=== PATIENT | female | born 1940 | race Caucasian/White ===

== ENCOUNTER 2020-11-21 08:27 | Observation (INO) ==
--- NOTE | 2020-11-07 10:29 | Anesthesiology Consultation ---
Date of Service November 07, 2020 Assessment & Plan (1) Encounter for pre-operative examination: Chart Review Chart Review: Acceptable Risk for Surgery (pending preop Covid testing results ) and Patient NOT seen in Pre Admission Testing Per nursing assessment 11/07/20, pt resides in [facility]. Wears mask, uses good hand hygiene and socially distances. Lives in apartment complex. Pt tested Covid positive in 06/2020- symptoms had improved but then patient tested Covid positive 10/07/20 at preop PAT appt for 10/14/20 surgery- pt states she did get fever, cough, sore throat and breathing issues. Still has mild residual occ sore throat sensation. Pt still tested Covid positive 11/21/20 but Covid negative 11/03/20. Pt scheduled for preop Covid testing 11/17/20= will await results. Right TKA (03/15/14): SAB at L3-L4 (x1 attempt) + PNB at [facility] History Surgery Operation Date: 11/21/20 11:15 Proposed Procedures p Left Total Knee Replacement - Praful Carney MD Height/Weight Height: 5 ft Weight: 72.575 kg Allergies Allergy/AdvReac Type Severity Reaction Status Date / Time diphenhydramine AdvReac Mild "Loopy" Verified 11/07/20 09:07 indomethacin AdvReac Mild "Sick" Verified 11/07/20 09:07 metoclopramide AdvReac Mild "Sick" Verified 11/07/20 09:07 naproxen AdvReac Mild "Sick" Verified 11/07/20 09:07 Medications Home Medications Medication Instructions Recorded Confirmed Last Taken acetaminophen 650 mg PO DAILY PRN 10/07/20 11/07/20 Unknown cetirizine [Allergy Relief 10 mg PO QPM 10/07/20 11/07/20 Unknown (cetirizine)] escitalopram oxalate 10 mg PO HS 10/07/20 11/07/20 Unknown lisinopril 5 mg PO HS 10/07/20 11/07/20 Unknown vvdxktragxsr-[id number] acid 1 tab PO QAM 10/07/20 11/07/20 Unknown [Centrum Women] pantoprazole 40 mg PO BID 10/07/20 11/07/20 Unknown potassium chloride 10 meq PO QAM 10/07/20 11/07/20 Unknown pramipexole 0.5 mg PO HS 10/07/20 11/07/20 Unknown simvastatin 20 mg PO HS 10/07/20 11/07/20 Unknown amino acids [Amino Acid] 3 cap PO QAM 11/07/20 11/07/20 Unknown ascorbic acid (vitamin C) [Vitamin 2 g PO QAM 11/07/20 11/07/20 Unknown C] aspirin [Aspir-81] 81 mg PO QAM 11/07/20 11/07/20 Unknown furosemide 20 mg PO QAM 11/07/20 11/07/20 Unknown Past Medical History Medical History Depression GERD (gastroesophageal reflux disease) controlled History of COVID-19 Diagnosed 06/22/20 at [facility]--sore throat, fever, cough, raspy breathing > resolved DX'D AGAIN [facility] INITIALLY ON 10/07/20 (TEST STILL POSITIVE 10/22/20)-HAD SIMILAR SYMPTOMS TO PREVIOUS -ONLY HAS OCC SORE THROAT SENSATION AT THIS TIME History of thrombophlebitis Hx of multiple superficial blood clots (LEs)- most recent , on ASA daily and wears compression stockings History of uterine cancer ~2005, s/p hysterectomy Hyperlipidemia Hypertension Migraine HX Osteoarthritis Past Family History Family History Father Family history of diabetes mellitus Daughter Family history of diabetes mellitus Brother Family history of diabetes mellitus Other No family history of adverse response to anesthesia Past Surgical History Surgical History History of bilateral cataract extraction History of bilateral tubal ligation History of cardiac cath 2012- "normal coronaries" History of colonoscopy History of esophagogastroduodenoscopy (EGD) History of hysteroscopy (showed uterine cancer) History of repair of hiatal hernia History of tooth extraction full upper denture/partial lower History of total hysterectomy with bilateral salpingo-oophorectomy (BSO) History of total right knee replacement (TKR) Right TKA (03/15/14): SAB at L3-L4 (x1 attempt) + PNB at [facility] History of varicose vein ligation and stripping Social History Smoking Status: Never smoker Do You Dip or Chew Tobacco: No Hx Alcohol Use: No Alcohol type: other alcohol intake frequency: other Hx Substance Use: No substance use type: does not use Lab Results Anesthesia Preop Results Results Anesthesia Widget: WBC 6.01 K/uL (4.8-10.8) 10/07/20 Hgb 12.6 g/dL (12.0-16.0) 10/07/20 Hct 38.6 % (37-47) 10/07/20 Plt 329 K/uL (130-400) 10/07/20 Na 140 mmol/L (136-145) 10/07/20 K 4.7 mmol/L (3.5-5.1) 10/07/20 Cl 108 mmol/L (98-107) H 10/07/20 CO2 30 mmol/L (21-32) 10/07/20 BUN 19 mg/dl (7-18) H 10/07/20 Creat 0.87 mg/dl (0.6-1.2) 10/07/20 Glucose Level 90 mg/dl (70-99) 10/07/20 PT 9.8 Seconds (9.0-12.0) 10/07/20 PTT 23.9 Seconds (21.0-31.0) 10/07/20 INR 1.0 (0.9-1.1) 10/07/20 Blood Type A Positive 10/07/20 Antibody Screen NEGATIVE 10/07/20 Testing Electrocardiogram Date: 10/07/20 Findings: + NSR @ (60) Chest X-Ray Date: 06/23/20 1 VIEW CXR No acute cardiopulmonary abnormality.
--- NOTE | 2020-11-15 11:26 | History and Physical Report ---
DATE OF ADMISSION: 11/21/2020 CHIEF COMPLAINT: Left knee pain. HISTORY OF PRESENT ILLNESS: The patient is an 80-year-old female well known to me from a right knee replacement done 7 years ago. She has a several year history of increasing left knee pain and discomfort that has gradually gotten worse over time. It is really starting to limit her activities and the ability to maintain an independent, active lifestyle. She lives by herself and having more difficulty doing this. Her walking tolerance is only a couple blocks. She has pain going up and down steps. She has lost about 100 pounds since her last surgery, but still limited by her knee pain. She now would like to proceed with left knee replacement. PAST MEDICAL HISTORY: Significant for, 1. Uterine cancer. 2. Anxiety/depression. 3. Obesity with a BMI of 31. 4. Hiatal hernia. PAST SURGICAL HISTORY: Includes, 1. Right knee replacement done on 03/05/2014. 2. Hernia surgery. ALLERGIES: None. CURRENT MEDICATIONS: 1. Tylenol. 2. Alendronate. 3. Os-Chris. 4. Cetirizine. 5. Vitamin D3. 6. Iron gluconate. 7. Furosemide. 8. Lisinopril. 9. Multivitamin. 10. Omeprazole. 11. Paroxetine. 12. Potassium chloride. 13. Pramipexole. 14. Probiotics. 15. Zocor. 16. Vitamin B12. 17. Coumadin 3 mg a day. SOCIAL HISTORY: An 80-year-old female who lives by herself. She is from [place]. Does not smoke. FAMILY HISTORY: Noncontributory. REVIEW OF SYSTEMS: Negative for diabetes, neurologic problem, vascular problems, or bleeding disorders. No chest pain or shortness of breath. No history of DVT or PE. She is on Coumadin. She has had an intentional weight loss of 100 pounds. PHYSICAL EXAMINATION: GENERAL: Shows a pleasant elderly female. Looks younger than her stated age. HEENT: Benign. NECK: Supple, no lymphadenopathy. LUNGS: Clear to auscultation. HEART: Has a regular rate and rhythm. ABDOMEN: Soft, nontender, nondistended. EXTREMITIES: Grossly neurovascularly intact except as follows: Examination of the left knee reveals the patient walks with slight bit of a limp. She has got a moderate soft tissue envelope. She has got varus alignment to her knee. She is tender over the medial joint line. Range of motion 5-120. There is no instability. No pain with hip motion. X-RAYS: X-rays of the left knee are reviewed. It shows advanced left knee medial compartment DJD. She has complete loss of her medial joint space. She has subchondral sclerosis. She has large osteophytes primarily medial. ASSESSMENT: An 80-year-old female, 7 years out from a right knee replacement with advanced left knee degenerative joint disease. She is on Coumadin. She has also lost 100 pounds since her last surgery. PLAN: We are going to take her to the operating room and do a left total knee replacement. The risks and benefits of this procedure were explained to the patient including but not limited to DVT, PE, , infection, neurological injury, vascular injury, bleeding problem, pain, limited range of motion, stiffness, failure to relieve her symptoms, incomplete relief of symptoms, need for further surgery in the future, fracture, leg length inequality, nerve palsy, etc. The patient understands and desires to proceed. Informed consent was obtained. She will stop her Coumadin 5 days preop. We will check a stat PT and INR on the morning of surgery. She is planning to be discharged to home and I believe her granddaughter is going to come and assist in her care.
[~2020-11-21 08:27] MED LIST: ACETAMINOPHEN 500 MG TAB PO SCH; BUPIVACAINE 0.5 % 5 MG/1 ML PF 10ML VIAL ONE; BUPIVACAINE LIPOSOME/PF 266 MG, BUPIVACAINE/EPINEPHRINE 50 ML, SODIUM CHLORIDE 0.9% PF ... INFIL SCH; EPINEPHrine INJ 1 MG/ML AMP ONE; FAMOTIDINE 20 MG TAB PO SCH; GABAPENTIN 300 MG CAP PO SCH; LR 500ML BOLUS, THEN 15ML/HR IV SCH; LR 60ML/HR IV SCH; ROPIVACAINE 0.5% 5 MG/ML 30 ML VIAL ONE; TRANEXAMIC ACID 1,000 MG **IV Intra-op IV SCH; ceFAZolin 2000MG 2,000 MG/15 ML SYR IV SCH
--- NOTE | 2020-11-21 09:38 | History & Physical Bridge Note ---
Date of Service November 21, 2020 History & Physical Bridge Note I have examined the patient, reviewed the History & Physical and in the interval since the performance of the History & Physical I have noted the following changes of clinical significance: no changes noted
[2020-11-21] MEDS ORDERED: HYDROmorphone INJ 1 MG/ML SYRINGE IV PRN (09:52)
[2020-11-21] MEDS ORDERED: PHENYLEPHRINE 100MCG/ML 5ML SYR IV PRN (09:52)
[2020-11-21] MEDS ORDERED: LABETALOL HCL IV 5 MG/ML 20ML IV PRN (09:52)
[2020-11-21] MEDS ORDERED: fentaNYL citrate PF 100 MCG/2 ML VIAL IV PRN (09:52)
[2020-11-21] MEDS ORDERED: ePHEDrine sulfate 50 MG/ML AMP IV PRN (09:52)
[2020-11-21] MEDS ORDERED: ATROPINE SULFATE 0.1 MG/ML 10ML SYR IV PRN (09:52)
[2020-11-21] MEDS ORDERED: ONDANSETRON INJ 2 MG/ML 2 ML VIAL IV PRN ×2 (09:52→15:12)
[2020-11-21] MEDS ORDERED: fentaNYL citrate PF 100 MCG/2 ML VIAL ONE (10:42)
[2020-11-21] MEDS ORDERED: MIDAZOLAM HCL 1 MG/ML 2ML VIAL ONE (10:42)
[2020-11-21] MEDS ORDERED: SODIUM CHLORIDE 0.9% PF 50 ML VIAL ONE (11:43)
[2020-11-21] MEDS ORDERED: EPINEPHrine INJ 1 MG/ML AMP ONE (11:43)
[2020-11-21] MEDS ORDERED: BUPIVACAINE 0.25% PF 30 ML VIAL ONE (11:43)
[2020-11-21] MEDS ORDERED: BUPIVACAINE LIPOSOME 1.3% 266 MG/20 ML VIAL ONE (11:44)
[2020-11-21] MEDS ORDERED: PROPOFOL IV EMULSION 10 MG/ML 20 ML VIAL IV ONE (13:15)
[2020-11-21] MEDS ORDERED: PHENYLEPHRINE 100MCG/ML 5ML SYR ONE (13:18)
--- NOTE | 2020-11-21 13:59 | Operative Report ---
Post Operative Report Pre & Post Diagnosis Operation Date: 11/21/20 10:40 Pre-Op Diagnosis: Left Knee Osteoarthritis Post-Op Diagnosis: Left Knee Osteoarthritis I identified the patient and participated in the time-out.: Yes Procedure Operation Date: 11/21/20 10:40 Actual Procedures p Left Total Knee Replacement(Left) - Praful Carney MD Surgeon Praful Carney MD Farm Tractor Operator СЕРГЕЙ Moreno Estimated Blood Loss 50 Findings Consistent with Post-Op Diagnosis Operative findings revealed advanced left knee DJD. Extensive grade 4 [id number] disease and eburnation of the entire medial compartment. She had less severe spotty changes elsewhere. She had a varus deformity to her knee with a large knee joint effusion. She had diffuse osteopenia. Fluids 1700 cc. Specimens Left knee sent for pathology. Anesthesia Type Spinal MAC Complications none Disposition Accompanied Patient To Recovery: No Disposition: Recovery Room Indications Patient is an 80-year-old fairly active independent female has had a long history of knee problems. She had a right knee replacement performed about 7 years ago and is done well from this. Over the past several years she has developed increased pain discomfort in her left knee. She failed conservative measures. She has been scheduled for surgery on several occasions but canceled mostly due to Covid issues. She now presents for surgical treatment. Description of Procedure Operative implants consist of: 1. Biomet Vanguard size 65 left posterior stabilized femoral component. 2. Biomet size 67 tibial tray. 3. 12 mm posterior stabilized polyethylene insert. 4. 28 x 8 all polypatella. The patient was taken to the operating room, identified, placed on the operating table supine position but all contact areas were properly padded. IV antibiotics tried by anesthesia team. Spinal anesthetic and abductor canal block had been provided in the holding area. Izaguirre catheter was placed in sterile fashion. Left thigh turn was then placed in the left lower extremities and prepped and draped in usual sterile fashion. The left leg was elevated exsanguinated with use of an Esmarch and turns placed at 300 mmHg. An anterior approach to the left knee was then performed through longitudinal incision centered over the patella. Sharp dissection was carried through subcutaneous this down the extensor mechanism. Medial parapatellar arthrotomy incision was made. Some subperiosteal dissection was carried out medially. The fat pad was resected from each the patella tendon. The lateral patellofemoral ligament was released. The patella subluxated laterally. The knee was flexed. The osteophytes were taken off distal femur P the ACL and PCL were then released from distal femur and the tibia subluxated anteriorly. The external tibial alignment jig was then placed in the interface the tibia and adjusted 14 mm medially. Proximal tibial cut was made to remove about 2 mm of bone from the most deficient aspect medial tibial plateau. Some osteophytes taken off medial and posterior medially. Tibia sized to a size 67. Attention drawn the femur. The distal femur turned the sharp drill. Intramedullary canal was suction. A left 5 degree valgus cutting guide was placed. The distal femoral cutting block was pinned in place. Distal femoral cut was made to take an additional 3 mm bone off distal femur. Femur was then sized to a size 65. We did downsize a slightly. The AP cutting block was pinned parallel to the epicondylar axis which was 4 degrees of external rotation. Anterior cut, anterior chamfer, posterior cut, posterior chamfer cuts were made. Box cutting guide was placed in just slight lateral and the box cut was made. The knee was flexed. The remnants of the medial and lateral menisci were excised. The osteophytes were taken off the posterior aspect the femur. A trial femoral component was placed. The tibial tray was pinned in maximum external rotation and the drill and stem punch were used to create defect in proximal tibia for the tibial tray. Knee was then trialed and the 12 mm insert fit most appropriately. Attention drawn the patella. Nipride the patella was cleaned of all soft tissue. Patella thickness measured 21 mm in thickness was cut down to 13. Was sized to a size 28 patella. The lug holes were drilled for the 28 patella. The lateral osteophyte was removed. Patella button was placed. Knee was taken through range of motion patella tracked nicely with no thumbs test. Attention drawn to placing the permanent components. Trial components were removed. Bone plug was placed in the distal femur limit blood loss. Double batch Palacos G cement was mixed. Biomet Surgimatixguard size 65 left posterior stabilized femoral component, size 67 tibial tray, a 12 mm posterior stabilized polyethylene insert, and a 28 x 8 all polypatella then cemented in place. Knee was brought out into full extension until cement hardened. Final cement check was then performed. Pericapsular tissues were injected with total 100 cc of combination of 20 cc of Exparel, 30 cc normal saline, 50 cc of quarter percent Marcaine with epinephrine. Patient did receive 1 g tranexamic acid. The tourniquet was then let down for final tourniquet time of 55 minutes. Hemostasis assured use electrocautery. Extensor mechanism closed with combination 1 PDS suture #1 Vicryl suture in a [id number] fashion. Extensor mechanism was checked and found to be intact and the subcutaneous tissue then closed with 2 Dexon suture in a buried interrupted fashion skin was closed skin malena. Leg was then cleaned dried a sterile dressing was Xeroform, 4 x 4's, sterile cast padding, Juan Diego bandage were applied. Patient then transferred to the recovery room in stable condition. Patient tolerated procedure well and there were no complications. Sanchez Moreno, my physician assistant professor of psychology, was present for the entire procedure. His assistance was essential and required for appropriate patient positioning, prepping and draping, surgical exposure, performing the technical details of the operation, placement the implants, closure of the wound, and placement of the sterile bandage. I attest to the content of the Intraoperative Record and any orders documented therein. Any exceptions are noted below.
--- NOTE | 2020-11-21 14:17 | Anesthesiology Progress Note ---
Date of Service November 21, 2020 Anesthesia Post Procedure Vital Signs Vital Signs: Temp Pulse Pulse Resp BP BP Pulse Ox 11/21/20 14:10 56 L 14 151/58 H 100 11/21/20 14:00 58 L 16 142/55 H 100 11/21/20 13:54 36.3 C L 58 L 14 121/66 100 11/21/20 09:33 36.6 C 59 L 18 146/75 H 100 Transfer of Care Handoff Completed per policy Notes Mental Status: alert / awake / arousable Patient Amnestic to Procedure: Yes Nausea / Vomiting: adequately controlled Pain: adequately controlled Airway Patency, RR, SpO2: stable & adequate BP & HR: stable & adequate Hydration State: stable & adequate Neuraxial Anesthesia: was administered and sensory block is resolving Anesthetic Complications: no major complications apparent and Pt Satisfied with anesthetic care
--- NOTE | 2020-11-21 14:27 | XRay Report ---
LEFT KNEE 2 VIEWS History: Left total knee arthroplasty. Degenerative arthritis. Postop. FINDINGS: The patient is status post a left total knee arthroplasty. The hardware is intact. No fract ure or dislocation. Skin malena are in place. IMPRESSION: Left total knee arthroplasty. No evidence for hardware complication. ACT 112: Negative or not required by law. Electronically signed by: Rey Kaplan M.D. 11/21/2020 2:26 PM
[2020-11-21] MEDS ORDERED: NALOXONE HCL 0.4 MG/1 ML VIAL/CARP IV PRN (15:12)
[2020-11-21] MEDS ORDERED: METOCLOPRAMIDE HCL INJ 5 MG/ML 2 ML VIAL IV PRN (15:12)
[2020-11-21] MEDS ORDERED: ALUMINUM/MAGNESIUM SUSP 30 ML UDC PO PRN (15:12)
[2020-11-21] MEDS ORDERED: HYDROmorphone INJ 0.5 MG/0.5 ML SYR IV PRN (15:12)
[2020-11-21] MEDS ORDERED: bisacodyL 10 MG SUPP PR PRN (15:12)
[2020-11-21] MEDS ORDERED: MAGNESIUM HYDROXIDE SUSP 30 ML UDC PO PRN (15:12)
[2020-11-21] MEDS: SODIUM CHLORIDE 0.9% 1,000 ML IV SCH (16:19)
[2020-11-21] MEDS: FERROUS GLUCONATE 324 MG TAB PO SCH (16:20)
[2020-11-21] MEDS: ACETAMINOPHEN 500 MG TAB PO SCH ×2 (16:20→22:00)
[2020-11-21] MEDS: ASCORBIC ACID 500 MG TAB PO SCH (16:21)
[2020-11-21] MEDS: KETOROLAC TROMETHAMINE 15 MG/ML VIAL IV SCH ×2 (16:21→22:02)
[2020-11-21] MEDS ORDERED: TRANEXAMIC ACID / 0.7% NACL 1,000 MG/100 ML BAG IV SCH (20:00)
[2020-11-21] MEDS: ceFAZolin 1000MG 1,000 MG/7.5 ML SYR IV SCH (20:24)
[2020-11-21] MEDS: CETIRIZINE HCL 10 MG TABLET PO SCH (20:38)
[2020-11-21] MEDS: SENNA 8.6 MG TAB PO SCH (20:38)
[2020-11-21] MEDS: ASPIRIN 81 MG ECTAB PO SCH (20:38)
[2020-11-21] MEDS: PANTOprazole 40 MG TAB PO SCH (20:39)
[2020-11-21] MEDS: ESCITALOPRAM OXALATE 10 MG TAB PO SCH (20:39)
[2020-11-21] MEDS: lisinopril 5 MG TAB PO SCH (20:39)
[2020-11-21] MEDS: PRAMIPEXOLE DIHYDROCHLO 0.5 MG TAB PO SCH (20:40)
[2020-11-21] MEDS: DOCUSATE SODIUM 100 MG CAP PO SCH (20:40)
[2020-11-21] MEDS: SIMVASTATIN 20 MG TAB PO SCH (20:41)
[2020-11-21] MEDS: PROSOURCE NO CARB 30 ML/PKT PO SCH (22:00)
[2020-11-22] MEDS: SODIUM CHLORIDE 0.9% 1,000 ML IV SCH (02:18)
[2020-11-22] MEDS: KETOROLAC TROMETHAMINE 15 MG/ML VIAL IV SCH ×2 (04:00→10:16)
[2020-11-22] MEDS: ceFAZolin 1000MG 1,000 MG/7.5 ML SYR IV SCH (04:00)
[2020-11-22] MEDS: ACETAMINOPHEN 500 MG TAB PO SCH ×3 (05:13→21:08)
[2020-11-22 06:14] LABS: Hemoglobin 10.1 g/dL (12.0-16.0); Mean Corpuscular Hemoglobin 34.5 pg (25-34); Mean Corpuscular Hgb Conc 32.6 g/dL (32-36); Mean Corpuscular Volume 105.8 fL (80-100); Mean Platelet Volume 8.7 fL (7.4-10.4); Platelet Count 228 K/uL (130-400); RDW Coefficient of Variation 14.8 % (11.5-14.5); RDW Standard Deviation 57.6 fL (36.4-46.3); Red Blood Count 2.93 M/uL (4.2-5.4); White Blood Count 9.96 K/uL (4.8-10.8)
[2020-11-22 06:46] LABS: BUN Creatinine Ratio 28.1 (10-20); Calcium 8.6 mg/dl (8.5-10.1); Creatinine Clr Calc Pharmacy 32.8 ml/min; Est GFR (African American) 91.7 ml/min; Est GFR (Non-African American) 79.1 ml/min; Potassium 4.1 mmol/L (3.5-5.1)
[2020-11-22] MEDS: FERROUS GLUCONATE 324 MG TAB PO SCH ×2 (07:30→16:54)
[2020-11-22] MEDS: ASCORBIC ACID 500 MG TAB PO SCH ×2 (07:30→16:53)
[2020-11-22] MEDS ORDERED: dexAMETHasone 10 MG in SYRINGE 0 ML IV SCH (08:00)
--- NOTE | 2020-11-22 08:41 | Progress Notes ---
DATE: 11/22/2020 SUBJECTIVE: An 80-year-old female postop day 1 from a left knee replacement. She is doing pretty well. Having quite a bit of pain, but responds to pain medicine. No chest pain or shortness of breath. Not feeling dizzy or lightheaded. OBJECTIVE: VITAL SIGNS: Temperature is 36.6. Vital signs stable. GENERAL: Shows a pleasant elderly female. She is sitting up in bed and looks quite comfortable this morning. LUNGS: Clear to auscultation. HEART: Has a regular rate and rhythm. ABDOMEN: Soft, nontender, nondistended. EXTREMITIES: Grossly neurovascularly intact except as follows: Examination of the left leg reveals the leg to be well aligned. She can dorsiflex and plantarflex her foot appropriately. She is neurologically intact. LABORATORY DATA: Hemoglobin 10.1. Hematocrit 31.0. Electrolytes are stable. ASSESSMENT: An 80-year-old female postop day 1 from a left knee replacement, doing pretty well. Pretty painful at times, but seems to do okay with the pain pills. She is neurologically intact. PLAN: 1. DVT prophylaxis including thigh-high TEDs, SCDs, and aspirin twice a day. 2. PT/OT. She can weightbear as tolerated. Left total knee protocol. 3. Pain control, doing okay with current pain regimen. Will have to follow up over the next 24 hours and adjust meds as needed. 4. Disposition: She is planning to be discharged to home to her daughter's house eventually. We will keep her today, change her dressing tomorrow, probably get her home tomorrow with some home health.
[2020-11-22] MEDS: PROSOURCE NO CARB 30 ML/PKT PO SCH ×3 (08:50→21:08)
[2020-11-22] MEDS: CEROVITE ADV FORMULA TAB PO SCH (08:50)
[2020-11-22] MEDS: PANTOprazole 40 MG TAB PO SCH ×2 (08:50→21:07)
[2020-11-22] MEDS: ASPIRIN 81 MG ECTAB PO SCH ×2 (08:50→21:07)
[2020-11-22] MEDS: FUROSEMIDE 20 MG TAB PO SCH (08:50)
[2020-11-22] MEDS: POTASSIUM CHLORIDE 10 MEQ TABCR PO SCH (08:51)
[2020-11-22] MEDS: DOCUSATE SODIUM 100 MG CAP PO SCH ×2 (08:51→21:07)
[2020-11-22] MEDS ORDERED: NON-FORMULARY MEDICATION (Ascorbic Acid (Vitamin C) [Vitamin C] 1,000 mg Tablet) PO SCH (09:00)
[2020-11-22] MEDS ORDERED: MULTIVITAMIN TAB PO SCH (09:00)
--- NOTE | 2020-11-22 09:47 | Anesthesiology Progress Note ---
Date of Service November 22, 2020 Anesthesia Post Procedure Vital Signs Vital Signs: Temp Pulse Pulse Resp BP BP Pulse Ox 11/22/20 07:08 36.6 C 65 16 121/73 94 11/22/20 03:46 36.6 C 61 16 134/75 96 11/21/20 22:11 36.4 C L 58 L 18 144/83 H 98 11/21/20 20:35 69 125/80 11/21/20 19:39 36.5 C 59 L 16 132/80 96 11/21/20 18:10 36.6 C 62 16 132/72 97 11/21/20 17:06 36.7 C 60 16 121/72 98 11/21/20 16:08 36.7 C 61 16 147/71 H 98 11/21/20 15:34 36.5 C 62 18 146/66 H 97 11/21/20 15:00 36.4 C L 55 L 16 137/72 96 11/21/20 14:45 58 L 16 137/77 95 11/21/20 14:30 56 L 18 137/65 95 11/21/20 14:20 36.3 C L 55 L 14 149/64 H 98 11/21/20 14:10 56 L 14 151/58 H 100 11/21/20 14:00 58 L 16 142/55 H 100 11/21/20 13:54 36.3 C L 58 L 14 121/66 100 Pain Intensity Left Knee: Pain Intensity: 4 Transfer of Care Handoff Completed per policy Notes Mental Status: alert / awake / arousable and participated in evaluation Nausea / Vomiting: adequately controlled Pain: adequately controlled Airway Patency, RR, SpO2: stable & adequate BP & HR: stable & adequate Hydration State: stable & adequate Neuraxial Anesthesia: sensory block resolved Anesthetic Complications: no major complications apparent and Pt Satisfied with anesthetic care Notes: Pt OOB walking with PT
[2020-11-22] MEDS: traMADol HCL 50 MG TABLET PO PRN (16:53)
[2020-11-22] MEDS: SENNA 8.6 MG TAB PO SCH (21:06)
[2020-11-22] MEDS: CETIRIZINE HCL 10 MG TABLET PO SCH (21:06)
[2020-11-22] MEDS: ESCITALOPRAM OXALATE 10 MG TAB PO SCH (21:06)
[2020-11-22] MEDS: lisinopril 5 MG TAB PO SCH (21:09)
[2020-11-22] MEDS: PRAMIPEXOLE DIHYDROCHLO 0.5 MG TAB PO SCH (21:09)
[2020-11-22] MEDS: SIMVASTATIN 20 MG TAB PO SCH (21:09)
[2020-11-23] MEDS: ACETAMINOPHEN 500 MG TAB PO SCH (05:14)
[2020-11-23] MEDS: FERROUS GLUCONATE 324 MG TAB PO SCH (07:20)
[2020-11-23] MEDS: ASCORBIC ACID 500 MG TAB PO SCH (07:20)
[2020-11-23] MEDS: DOCUSATE SODIUM 100 MG CAP PO SCH (09:04)
[2020-11-23] MEDS: PANTOprazole 40 MG TAB PO SCH (09:04)
[2020-11-23] MEDS: CEROVITE ADV FORMULA TAB PO SCH (09:04)
[2020-11-23] MEDS: PROSOURCE NO CARB 30 ML/PKT PO SCH (09:04)
[2020-11-23] MEDS: POTASSIUM CHLORIDE 10 MEQ TABCR PO SCH (09:04)
[2020-11-23] MEDS: FUROSEMIDE 20 MG TAB PO SCH (09:04)
[2020-11-23] MEDS: ASPIRIN 81 MG ECTAB PO SCH (09:04)
[2020-11-23] MEDS: traMADol HCL 50 MG TABLET PO PRN (09:09)
--- NOTE | 2020-11-23 09:17 | Progress Notes ---
DATE: 11/23/2020 SUBJECTIVE: An 80-year-old female postop day 2 from a left knee replacement. She is doing pretty well. Pain is controlled. No chest pain or shortness of breath. Not feeling dizzy or lightheaded. OBJECTIVE: VITAL SIGNS: Temperature of 36.4. Vital signs stable. GENERAL: Shows a pleasant elderly female. She is sitting up in her bedside chair, looks pretty comfortable. EXTREMITIES: Examination of the left leg reveals the dressing to be clean, dry, and intact. The leg is well aligned. She can dorsiflex and plantarflex her foot appropriately. She is neurologically intact. ASSESSMENT: An 80-year-old female postop day 2 from a left knee replacement, doing well. Her pain is controlled. She is neurologically intact. PLAN: 1. DVT prophylaxis including thigh-high TEDs, SCDs, and aspirin twice a day. 2. PT/OT. Weight bear as tolerated. Left total knee protocol. 3. Pain control, doing well with current pain regimen. 4. Disposition: Plan to discharge to home with some home health later today. She can go stay with her daughter for the next 2 weeks.
--- NOTE | 2020-11-28 06:51 | Discharge Summary ---
Date of Service November 28, 2020 Discharge Data Procedures Performed Operation Date: 11/21/20 10:40 Actual Procedures p Left Total Knee Replacement(Left) - Praful Carney MD Hospital Course (1) Status post total left knee replacement: This patient is a 80 year old admitted on 11/21/20 and underwent total knee arthroplasty. She tolerated the procedure well and there were no complications. Transferred to the PACU post op and later to the orthopedic floor for further care. She was given ancef for antibiotic prophylaxis. She was also given TRICIA stockings, SCDs, and aspirin for DVT prophylaxis. Hemoglobin, hematocrit, and vital signs were monitored during her hospital stay and remained stable. Did not require any blood transfusions. There were no complications during her hospital stay. By post op day #2 the patient was tolerating a regular diet, pain was reasonably controlled with oral pain medicine, and she was participating in physical therapy. On post op day #2 the patient was discharged home and set up with home health care. She was given printed discharge instructions including prescriptions for extra strength tylenol, aspirin, and tramadol. Continue physical therapy, weight bearing as tolerated. Continue TRICIA stockings. Follow up approximately 2 weeks post op or sooner if there are problems or concerns. Coding Level of Care Code None Diagnoses Status post total left knee replacement Z96.652
== END 2020-11-23 11:50 | disposition home health service (06) ==
LOC: 3E 08:27 → ASU 08:27